=== PATIENT | female | born 1980 | race American Indian/Alaskan Native ===

== ENCOUNTER 2018-02-14 09:39 | Day surgery (SDC) | payer BC ==
[2018-02-14] MEDS ORDERED: NACL BACTERIOSTATIC INFILTRATI ONE (13:07)
[2018-02-14 13:32] LABS: Basophils % (Auto) 0.4 % (0.0-1.8); Eosinophils # (Auto) 0.1 K/mm3 (0.0-0.4); Hematocrit 32.4 % (30.3-42.9); Hemoglobin 10.4 gm/dl (10.1-14.3); Lymphocytes # (Auto) 1.8 K/mm3 (1.2-5.4); Lymphocytes % (Auto) 31.1 % (13.4-35.0); Mean Corpuscular HGB Conc 32 % (30-34); Mean Corpuscular Hemoglobin 27 pg (28-32); Mean Corpuscular Volume 82 fl (79-97); Monocytes # (Auto) 0.4 K/mm3 (0.0-0.8); Monocytes % (Auto) 7.4 % (0.0-7.3); Platelet Count 266 K/mm3 (140-440); Red Blood Count 3.93 M/mm3 (3.65-5.03); Red Cell Distribution Width 15.1 % (13.2-15.2)
[2018-02-14] MEDS ORDERED: ZOFRAN IV PRN (13:46)
--- NOTE | 2018-02-14 13:47 | Anesthesia Day of Surgery ---
Anesthesia Day of Surgery - Day of Surgery Patient Examined: Yes Patient H&P Reviewed: Yes Patient is NPO: Yes
--- NOTE | 2018-02-14 13:48 | Anesthesia Consultation ---
Anesthesia Consult and Med Hx Date of service: 02/14/18 - Airway Anesthetic Teeth Evaluation: Good ROM Head & Neck: Adequate Mental/Hyoid Distance: Adequate Mallampati Class: Class II Intubation Access Assessment: Probably Good - Pulmonary Exam CTA: Yes - Cardiac Exam Cardiac Exam: RRR - Pre-Operative Health Status ASA Pre-Surgery Classification: ASA3 Proposed Anesthetic Plan: General - Pulmonary Hx Smoking: Yes (1/2 PPD FOR 10Y QUIT 2011) - Cardiovascular System Hx Hypertension: Yes (10 YEARS) - Endocrine Hx Hypothyroidism: Yes - Other Systems Hx Cancer: No
[2018-02-14] MEDS ORDERED: ANCEF/STERILE WATER 2 GM/20 ML IV NR (14:00)
[2018-02-14] MEDS ORDERED: VERSED IV NR (14:00)
[2018-02-14] MEDS ORDERED: LACTATED RINGERS 1,000 ML IV SCH (14:00)
[2018-02-14] MEDS ORDERED: DIPRIVAN 10 MG/ML IV ONE (15:49)
[2018-02-14] MEDS ORDERED: XYLOCAINE MPF 2% ONE (15:49)
[2018-02-14] MEDS ORDERED: SUBLIMAZE ONE ×2 (19:35→20:46)
[2018-02-14] MEDS ORDERED: NEO SYNEPHRINE/NS Syringe(OR USE) IV ONE (21:15)
[2018-02-14] MEDS ORDERED: LACTATED RINGERS 1,000 ML ONE (21:46)
[2018-02-14] MEDS ORDERED: ZOFRAN ONE (21:46)
[2018-02-14] MEDS ORDERED: DECADRON ONE (21:46)
--- NOTE | 2018-02-14 22:30 | Operative Report ---
SERVICE: Plastic surgery. PREOPERATIVE DIAGNOSIS: Macromastia. POSTOPERATIVE DIAGNOSIS: Macromastia. PROCEDURE: Bilateral reduction mammoplasty. SURGEON: Wilfred Wick MD WASHROOM ATTENDANT: Bravo Romo CSA FINDINGS: Right breast 940 grams, left breast 860 grams. DESCRIPTION OF PROCEDURE: The patient was brought to the operating room and placed on the table in supine position. Following administration of general anesthesia, bilateral breasts were prepped with Betadine solution, draped in usual sterile manner. A #10 blade scalpel was used to make a circumareolar skin incision followed by de-epithelization of inferior dermal pedicle. Modified Bullard pattern skin markings were incised with scalpel, deepened through subcutaneous fat and breast tissue using electrocautery. Skin flaps were raised in standard manner as was fashioning of an inferior central mound pedicle. Breast tissue was resected and sent to pathology as specimen. Hemostasis controlled using electrocautery. Closure was performed over 10 mm SHEILA drains using interrupted and running subcuticular 2-0 Monocryl sutures. Mastisol, Steri-Strips, and sterile dressings applied. The patient tolerated the procedure well and returned to recovery room in stable condition. JOB# [id number] FTW/NTS
[2018-02-14] MEDS ORDERED: MORPHINE ONE (22:38)
--- NOTE | 2018-02-14 22:41 | Discharge Summary ---
Short Stay Discharge Plan Activity: no restrictions Weight Bearing Status: Full Weight Bearing Diet: regular Wound: remove dressing (72hrs and may shower) Follow up with: JAKE MANNING MD [Primary Care Provider] - 6 Weeks WORK,ROBERT Guan JR, MD [Staff Physician] - 7 Days
--- NOTE | 2018-02-14 22:42 | Short Stay Summary ---
Short Stay Documentation Date of service: 02/14/18 - Allergies and Medications Current Medications: Allergies NSAIDS (Non-Steroidal Anti-Inflamma Adverse Reaction (Verified 02/11/18 11:37) CONTRAINDICATED DUE TO GASTIC SLEEVE Home Medications Medication Instructions Recorded Confirmed Last Taken Type Amlodipine Besylate [Norvasc] 5 mg PO DAILY 02/11/18 02/14/18 02/13/18 21:00 History Levothyroxine Sodium 137 mcg PO QAM 02/11/18 02/14/18 02/13/18 09:00 History [Levothyroxine] Active Medications Cefazolin Sodium (Ancef/Sterile Water 2 Gm/20 Ml) 2 gm IV PREOP NR Stop: 02/14/18 23:59 Hydromorphone HCl (Dilaudid) 0.5 mg IV Q10MIN PRN PRN Reason: Pain , Severe (7-10) Lactated Ringer's (Lactated Ringers) 1,000 mls @ 100 mls/hr IV DIRECT ABBEY Last Admin: 02/14/18 13:56 Dose: 100 mls/hr Midazolam HCl (Versed) 2 mg IV PREOP NR Stop: 02/14/18 23:59 Last Admin: 02/14/18 16:03 Dose: 2 mg Ondansetron HCl (Zofran) 4 mg IV ONCE PRN PRN Reason: Nausea And Vomiting - Brief post op/procedure progress note Date of procedure: 02/14/18 Pre-op diagnosis: Macromastia Post-op diagnosis: same Procedure: Colin. Breast Reduction Anesthesia: GETA Findings: R-940gm & L-860gm Surgeon: ROBERT HUANG JR Estimated blood loss: 50-100ml Specimen disposition: to lab Condition: stable - Disposition Condition at discharge: Good Disposition: [id number] TO HOME OR SELFCARE Short Stay Discharge Plan Follow up with: JAKE MANNING MD [Primary Care Provider] - 6 Weeks ROBERT HUANG JR, MD [Staff Physician] - 7 Days
[2018-02-14] MEDS: DILAUDID IV PRN ×2 (23:02→23:23)
[2018-02-14 23:30] VITALS: BP 157/95
== END 2018-02-14 09:40 | disposition home or self-care (01) ==
LOC: OR 09:39
PROVIDERS: ATTEND Plastic Surgery
DX: N62 Hypertrophy of breast (principal); E03.9 Hypothyroidism, unspecified; I10 Essential (primary) hypertension; Z79.899 Other long term (current) drug therapy; Z88.6 Allergy status to analgesic agent; Z87.891 Personal history of nicotine dependence; Z90.49 Acquired absence of other specified parts of digestive tract; Z98.890 Other specified postprocedural states
CPT/HCPCS: 19318; 36415; 81025; 85025; 88305; J0690; J1100; J1170; J2250; J2270; J2370; J2405; J2704; J3010; J7120